=== PATIENT | male | born 1955 | race Hispanic/Latino ===

== ENCOUNTER 2017-10-31 04:47 | Emergency (ER) | payer OTHER, BC ==
[2017-10-31 05:26] VITALS: O2SAT 98
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
[2017-10-31 06:14] LABS: BASO # 0.01 K/mm3 (0.0-2.0); BASO % 0.1 % (0.0-3.0); EOS # 0.1 (0.0-0.7); EOS % 1.7 % (1.5-5.0); GRAN # 6.77 (1.4-6.5); GRAN % 80.3 % (50.0-68.0); HEMOGLOBIN 14.5 g/dL (14.0-18.0); LYMPH % 11.6 % (22.0-35.0); MEAN CELL VOLUME 81.6 fl (80.0-105.0); MEAN CORPUSCULAR HEMOGLOBIN 28.4 pg (25.0-35.0); MEAN CORPUSCULAR HGB CONC 34.8 g/dl (31.0-37.0); MEAN PLATELET VOLUME 10.2 fl (7.0-11.0); MONO # 0.5 (0.1-0.6); MONO % 6.3 % (1.0-6.0); RBC 5.11 10^6/uL (3.5-6.1); RED CELL DISTRIBUTION WIDTH 13.6 % (11.5-14.5); WHITE BLOOD COUNT 8.4 10^3/ul (4.5-11.0)
[2017-10-31 06:24] LABS: ALB/GLOB RATIO 1.4 (1.1-1.8); ALBUMIN 3.8 g/dL (3.0-4.8); ALT/SGPT 33 U/L (7-56); AST/SGOT 25 U/L (17-59); BLOOD UREA NITROGEN 27 mg/dL (7-21); CALCIUM 9.5 mg/dL (8.4-10.5); GFR AFRICAN-AMERICAN > 60; GFR NON-AFRICAN AMERICAN > 60
[2017-10-31 06:32] LABS: PROTHROMBIN TIME 11.5 SECONDS (9.4-12.5)
[2017-10-31 06:33] LABS: B-TYPE NATRIURETIC PEPTIDE 34.5 pg/mL (0-450); TROPONIN I < 0.01 ng/mL
--- NOTE | 2017-10-31 06:40 | CT ---
EXAM: CT Head Without Intravenous Contrast CLINICAL HISTORY: 62 years old, male; Signs and symptoms; Syncope and collapse TECHNIQUE: Axial computed tomography images of the head/brain without intravenous contrast. All CT scans at this facility use one or more dose reduction techniques, viz.: automated exposure control; ma/kV adjustment per patient size (including targeted exams where dose is matched to indication; i.e. head); or iterative reconstruction technique. 381 images are submitted. Coronal and sagittal reformatted images were created and reviewed. Axial reformatted images were created and reviewed. COMPARISON: No relevant prior studies available. FINDINGS: Brain: There is a right cerebellar punctate calcifications seen on image 10 through 12. A dynamic 73 and 74 series 601. This could represent vascular etiology. If clinically indicated correlation with contrast-enhanced MRI may be helpful to further characterize this finding. Mild cerebral and cerebellar volume loss. Minimal hypodensity is seen in the periventricular cerebral white matter. No hemorrhage. Ventricles: Unremarkable. No ventriculomegaly. Bones/joints: Unremarkable. No acute fracture. Soft tissues: Unremarkable. Sinuses: Right maxillary sinus mucus retention cyst and/or polyp. Mastoid air cells: Unremarkable. No mastoid effusion. Orbits: The globe and lens are intact. IMPRESSION: 1. No evidence of an acute intracranial hemorrhage, midline shift or mass effect is identified. 2. There is asymmetric right cerebellar punctate calcifications seen on image 10 through 12. A dynamic 73 and 74 series 601. This could represent vascular etiology. If clinically indicated correlation with nonemergent contrast-enhanced MRI may be helpful to further characterize this finding.
[2017-10-31 06:48] LABS: CK MB% 2.5 % (2.5-3.0); CK-MB 6.4 ng/mL (0.0-3.6)
[2017-10-31 07:25] VITALS: BP 133/76; PULSE 87; RESP 16
--- NOTE | 2017-10-31 08:36 | RAD ---
HISTORY: Syncope COMPARISON: No prior. FINDINGS: LUNGS: The lungs are well inflated and clear. PLEURA: No significant pleural effusion identified, no pneumothorax apparent. CARDIOVASCULAR: Normal. OSSEOUS STRUCTURES: No significant abnormalities. VISUALIZED UPPER ABDOMEN: Normal. OTHER FINDINGS: None. IMPRESSION: No active pulmonary disease.
--- NOTE | 2017-10-31 21:33 | CARD ---
APPROVED REPORT EKG Measurement Heart [id number] <Conclusion> Normal sinus rhythm Normal ECG
== END 2017-10-31 08:00 | disposition left against medical advice (07) ==
LOC: ED 04:47 → MERGE 04:47 → ED 08:00
DX: R55 Syncope and collapse (principal)